=== PATIENT | female | born 1975 | race African-American/Black ===

== ENCOUNTER 2017-01-11 08:37 | Emergency (ER) | payer OTHER, MEDICAID ==
[~2017-01-11] VITALS: Ht 162.6 cm; Wt 74.8 kg
[~2017-01-11 08:37] MED LIST: DIFLUCAN PO; NO MEDICATIONS
== END 2017-01-11 09:34 | disposition home or self-care (01) ==
LOC: SED 08:37
DX: N89.8 Other specified noninflammatory disorders of vagina (principal)
CPT/HCPCS: 99283